=== PATIENT | female | born 2000 | race African-American/Black ===

== ENCOUNTER 2024-07-17 16:04 | Emergency (ER) | payer BC ==
[~2024-07-17] VITALS: Ht 172.7 cm; Wt 59.0 kg
[2024-07-17 17:07] VITALS: O2SAT 99
[2024-07-17 17:23] VITALS: TEMP 36.8; O2SAT 100
[2024-07-17] MEDS ORDERED: LIDO700A30 TP (19:15)
[2024-07-17] MEDS ORDERED: CYCL5TAB3 MT (19:15)
[2024-07-17 19:18] VITALS: BP 122/74; PULSE 75; RESP 16
[2024-07-17] MEDS: KETOROLAC 15MG/ML VIAL IM ONE (19:18)
[2024-07-17] MEDS: ACETAMINOPHEN 325MG TABLET PO ONE (19:18)
[2024-07-17] MEDS: LIDOCAINE 5% PATCH TOP SCH (19:18)
== END 2024-07-17 20:19 | disposition home or self-care (01) ==
LOC: ER 16:04
DX: S43.102A Unspecified dislocation of left acromioclavicular joint, initial encounter (principal); J45.909 Unspecified asthma, uncomplicated; V49.40XA Driver injured in collision with unspecified motor vehicles in traffic accident, initial encounter; Y93.89 Activity, other specified; Y92.89 Other specified places as the place of occurrence of the external cause; Y99.8 Other external cause status
CPT/HCPCS: 99283; 81025; 73030; 96372; J1885; A4565